=== PATIENT | male | born 1965 | race Two or more races ===

== ENCOUNTER 2020-08-26 09:57 | Outpatient (CLI) | payer MEDICARE, MEDICAID | END 2020-08-26 23:59 | disposition home or self-care (01) | LOC: CFH 09:57 | PROVIDERS: ATTEND Family Medicine | DX: Z12.2 Encounter for screening for malignant neoplasm of respiratory organs (principal); R91.1 Solitary pulmonary nodule; J84.10 Pulmonary fibrosis, unspecified; F17.210 Nicotine dependence, cigarettes, uncomplicated | CPT/HCPCS: 71271 ==